=== PATIENT | female | born 1975 | race African-American/Black ===

== ENCOUNTER 2019-10-11 10:52 | Emergency (ER) | payer OTHER ==
[~2019-10-11] VITALS: Ht 172.7 cm; Wt 63.0 kg
[2019-10-11] MEDS ORDERED: PROPRANOLOL HCL 1MG/ML AMPULE IV ONE (11:15)
[2019-10-11] MEDS ORDERED: SODIUM CHLORIDE 0.9% 1,000 ML IV ONE ×2 (11:15)
[2019-10-11] MEDS ORDERED: LORAZEPAM 2MG/ML CPJ IV ONE (11:30)
[2019-10-11] MEDS: ACETAMINOPHEN 325MG TABLET PO STA ×2 (11:55→12:40)
[2019-10-11 12:11] LABS: BASOPHILS % 0.2 % (0.0-2.0); EOSINOPHILS % 1.5 % (0.0-5.0); HEMATOCRIT. 31.3 % (36.0-48.0); HEMOGLOBIN. 9.8 g/dL (12.0-16.0); LYMPHOCYTES % 32.8 % (20.0-50.0); MEAN CORPUSCULAR HEMOGLOBIN 18.2 pg (28.0-32.0); MEAN CORPUSCULAR VOLUME 58.4 fL (81.0-99.0); MEAN PLATELET VOLUME 9.1 fl (7.4-10.4); MONOCYTES % 13.3 % (2.0-8.0); NEUTROPHILS % 52.2 % (40.0-76.0); PLATELET 294 x1000/uL (130-400); RED BLOOD CELL COUNT 5.36 mill/uL (4.2-5.4); RED CELL DISTRIBUTION WIDTH 18.8 % (11.6-14.6)
[2019-10-11 12:14] LABS: CHLORIDE 105 mEq/L (98-107)
[2019-10-11 12:27] LABS: T4 FREE 6.84 ng/dL (0.76-1.46)
[2019-10-11 12:36] LABS: PLATELET ESTIMATE NORMAL
[2019-10-11] MEDS ORDERED: HYDROCORTISONE SOD SUCCINATE 250 MG/2 ML VIAL IV ONE (13:00)
[2019-10-11] MEDS ORDERED: PROPYLTHIOURACIL 50MG TABLET PO SCH (13:00)
[2019-10-11] MEDS ORDERED: METHIMAZOLE 5MG TABLET PO SCH (13:15)
[2019-10-11] MEDS ORDERED: SODIUM CHLORIDE 0.9% 1,000 ML IV SCH (13:40)
[2019-10-11] MEDS ORDERED: IPRATROPIUM/ALBUTEROL 0.5-3(2.5)MG/3ML NEB NEB PRN (13:45)
[2019-10-11] MEDS ORDERED: ACETAMINOPHEN 325MG TABLET PO PRN (13:45)
[2019-10-11] MEDS ORDERED: ONDANSETRON HCL 4MG/2ML INJ IV PRN (13:45)
[2019-10-11] MEDS ORDERED: CLONIDINE 0.1MG TABLET PO PRN (13:45)
[2019-10-11] MEDS ORDERED: ZOLPIDEM TARTRATE 5MG TABLET PO PRN (13:45)
[2019-10-11] MEDS ORDERED: GUAIFENESIN 200MG/10ML SUGAR FREE UDC PO PRN (13:45)
[2019-10-11] MEDS ORDERED: KETOROLAC 15MG/ML VIAL IV PRN (13:45)
[2019-10-11] MEDS ORDERED: DOCUSATE SODIUM 100MG CAPSULE PO PRN (13:45)
[2019-10-11] MEDS ORDERED: MAGNESIUM/ALUMINUM HYDROXIDE/SIMETHICONE 30ML UDC PO PRN (13:45)
[2019-10-11] MEDS ORDERED: LORAZEPAM 2MG/ML CPJ IV PRN (13:45)
[2019-10-11] MEDS ORDERED: POTASSIUM IODIDE/IODINE 20ML PO SCH (15:00)
[2019-10-11 17:22] LABS: *AMPHETAMINES SCREEN URINE NEGATIVE (NEGATIVE); CANNABINOID URINE SCREEN NEGATIVE (NEGATIVE)
[2019-10-11 17:23] LABS: *BARBITURATES SCREEN URINE NEGATIVE (NEGATIVE); *BENZODIAZEPINES SCREEN URINE NEGATIVE (NEGATIVE); *COCAINE SCREEN URINE NEGATIVE (NEGATIVE); METHADONE URINE SCREEN NEGATIVE (NEGATIVE); OPIATES URINE SCREEN NEGATIVE (NEGATIVE); PHENCYCLIDINE URINE SCREEN NEGATIVE (NEGATIVE)
[2019-10-11] MEDS ORDERED: PROPRANOLOL HCL 20MG TABLET PO NR (22:08)
[2019-10-11] MEDS ORDERED: METHIMAZOLE 5MG TABLET PO NR (22:09)
[2019-10-11] MEDS ORDERED: ASPIRIN 325MG EC TABLET PO NR (22:10)
[2019-10-11] MEDS ORDERED: LEVETIRACETAM 500MG TABLET PO NR (22:15)
[2019-10-11] MEDS ORDERED: FAMOTIDINE 20MG TABLET PO NR (22:15)
[2019-10-12] MEDS ORDERED: PROPRANOLOL HCL 20MG TABLET PO SCH (06:00)
[2019-10-12] MEDS ORDERED: METHIMAZOLE 5MG TABLET PO SCH (06:00)
[2019-10-12 08:59] VITALS: BP 112/52
[2019-10-12] MEDS ORDERED: ASPIRIN 325MG EC TABLET PO SCH (09:00)
[2019-10-12] MEDS ORDERED: ENOXAPARIN 40MG/0.4ML SYR SUBCUT SCH (09:00)
[2019-10-12] MEDS ORDERED: FAMOTIDINE 20MG TABLET PO SCH (09:00)
[2019-10-12] MEDS ORDERED: LEVETIRACETAM 500MG TABLET PO SCH (09:00)
== END 2019-10-12 09:09 | disposition left against medical advice (07) ==
LOC: ER 10:52 → EDBEDREQTM 14:58 → EDBEDREQ 14:58 → EDBEDREQSVC 14:58 → EDBEDREQ 10-12 08:20 → EDBEDREQSVC 10-12 08:20 → ER 10-12 09:09 → CANBEDREQ 10-12 17:01
DX: E05.91 Thyrotoxicosis, unspecified with thyrotoxic crisis or storm (principal); I48.20 Chronic atrial fibrillation, unspecified; G40.909 Epilepsy, unspecified, not intractable, without status epilepticus; G93.49 Other encephalopathy; Z79.01 Long term (current) use of anticoagulants; V43.52XA Car driver injured in collision with other type car in traffic accident, initial encounter; Y93.89 Activity, other specified; Y92.488 Other paved roadways as the place of occurrence of the external cause
CPT/HCPCS: 36415; 71045; 80053; 80305; 80320; 81025; 83036; 83880; 84439; 84443; 84481; 84484; 85025; 93005; 96361; 96374; 96375; 96376; 99284; J1720; J1800; J2060; J7030; G0480

== ENCOUNTER 2022-04-27 08:09 | Emergency (ER) | payer OTHER ==
[~2022-04-27] VITALS: Ht 157.5 cm; Wt 53.0 kg
[2022-04-27] MEDS ORDERED: LEVETIRACETAM 1000MG PREMIX 100 ML IV ONE (08:30)
[2022-04-27] MEDS ORDERED: DILTIAZEM HCL 5MG/ML 5ML VIAL IV ONE (08:30)
[2022-04-27] MEDS ORDERED: METOPROLOL TARTRATE 5MG/5ML VIAL IV SCH (08:45)
[2022-04-27 09:06] LABS: BASOPHILS % 0.3 % (0.0-2.0); EOSINOPHILS % 1.5 % (0.0-5.0); HEMATOCRIT. 37.7 % (36.0-48.0); HEMOGLOBIN. 11.8 g/dL (12.0-16.0); LYMPHOCYTES % 23.7 % (20.0-50.0); MEAN CORPUSCULAR HEMOGLOBIN 20.6 pg (28.0-32.0); MEAN PLATELET VOLUME 8.8 fl (7.4-10.4); MONOCYTES % 7.3 % (2.0-8.0); NEUTROPHILS % 67.2 % (40.0-76.0); PLATELET 330 x1000/uL (130-400); RED BLOOD CELL COUNT 5.71 mill/uL (4.2-5.4); RED CELL DISTRIBUTION WIDTH 17.7 % (11.6-14.6)
[2022-04-27 09:17] LABS: CHLORIDE 104 mEq/L (98-107)
[2022-04-27 09:32] LABS: T4 FREE 3.36 ng/dL (0.76-1.46)
[2022-04-27 09:38] LABS: PLATELET ESTIMATE NORMAL
[2022-04-27 10:19] VITALS: BP 130/68
[2022-04-27 14:20] LABS: HCG SCREEN NEGATIVE
== END 2022-04-27 11:52 | disposition left against medical advice (07) ==
LOC: ER 08:09 → CMPBEDREQ 20:47
DX: I48.91 Unspecified atrial fibrillation (principal); R56.9 Unspecified convulsions; E05.90 Thyrotoxicosis, unspecified without thyrotoxic crisis or storm; Z20.822 Contact with and (suspected) exposure to COVID-19
CPT/HCPCS: 36415; 71045; 76604; 80053; 81025; 84439; 84443; 84480; 84484; 84703; 85025; 87426; 93005; 93880; 96365; 96375; 99291; C9803; J1953; J3490